=== PATIENT | female | born 2000 | race Two or more races ===

== ENCOUNTER 2020-06-24 11:09 | Emergency (ER) | payer MEDICAID ==
[~2020-06-24] VITALS: Ht 172.7 cm; Wt 77.0 kg
[2020-06-24 11:13] VITALS: BP 134/78
[2020-06-24] MEDS ORDERED: HYDROCODONE/ACETAMINOPHEN 5/325MG TABLET PO ONE (11:45)
== END 2020-06-24 13:00 | disposition home or self-care (01) ==
LOC: ER 11:09
DX: S29.012A Strain of muscle and tendon of back wall of thorax, initial encounter (principal); S20.219A Contusion of unspecified front wall of thorax, initial encounter; V43.52XA Car driver injured in collision with other type car in traffic accident, initial encounter; Y93.89 Activity, other specified; Y92.89 Other specified places as the place of occurrence of the external cause; Y99.8 Other external cause status
CPT/HCPCS: 71046; 72040; 72100; 81025; 99284

== ENCOUNTER 2024-11-19 14:16 | Emergency (ER) | payer MEDICAID ==
[~2024-11-19] VITALS: Ht 170.2 cm; Wt 77.0 kg
[2024-11-19 14:18] VITALS: BP 123/76; PULSE 118; RESP 18; TEMP 36.6; O2SAT 100
== END 2024-11-19 15:32 | disposition left against medical advice (07) ==
LOC: ER 14:16
DX: S40.869A Insect bite (nonvenomous) of unspecified upper arm, initial encounter (principal); Z53.21 Procedure and treatment not carried out due to patient leaving prior to being seen by health care provider; W57.XXXA Bitten or stung by nonvenomous insect and other nonvenomous arthropods, initial encounter; Y93.89 Activity, other specified; Y92.89 Other specified places as the place of occurrence of the external cause; Y99.8 Other external cause status